=== PATIENT | male | born 1995 | race Caucasian/White ===

== ENCOUNTER 2018-11-19 01:47 | Inpatient (IN) | payer OTHER, MEDICAID ==
[~2018-11-19] VITALS: Ht 195.6 cm; Wt 81.6 kg
[2018-11-19] MEDS ORDERED: MAGNESIUM/ALUMINUM HYDROXIDE/SIMETHICONE 30ML UDC PO STA (03:46)
[2018-11-19] MEDS ORDERED: ONDANSETRON HCL 4MG/2ML INJ IV STA (03:46)
[2018-11-19] MEDS ORDERED: SODIUM CHLORIDE 0.9% 1,000 ML IV ONE (03:46)
[2018-11-19] MEDS ORDERED: MORPHINE SULFATE 4 MG/ML CPJ (NOT FOR IM USE) IV STA ×2 (03:46→07:15)
[2018-11-19 04:44] LABS: EOSINOPHILS % 0.5 % (0.0-5.0); HEMATOCRIT. 48.5 % (42.0-52.0); HEMOGLOBIN. 16.4 g/dL (14.0-18.0); MEAN CORPUSCULAR HEMOGLOBIN 32.3 pg (28.0-32.0); MEAN CORPUSCULAR VOLUME 95.5 fL (80.0-94.0); MEAN PLATELET VOLUME 9.8 fl (7.4-10.4); MONOCYTES % 3.1 % (2.0-8.0); NEUTROPHILS % 83.4 % (40.0-76.0); PLATELET 251 x1000/uL (130-400); RED BLOOD CELL COUNT 5.07 mill/uL (4.7-6.1); RED CELL DISTRIBUTION WIDTH 12.9 % (11.6-14.6)
[2018-11-19 04:47] LABS: CHLORIDE 105 mEq/L (98-107)
[2018-11-19 05:05] LABS: CLARITY URINE CLEAR (CLEAR); COLOR URINE YELLOW (YELLOW); KETONES URINE 3+ (NEGATIVE); LEUKOCYTE ESTERASE URINE NEGATIVE (NEGATIVE); NITRITE URINE NEGATIVE (NEGATIVE); OCCULT BLOOD URINE NEGATIVE (NEGATIVE); PH URINE 5.5 (4.5-8.0); PROTEIN URINE NEGATIVE (NEGATIVE); SPECIFIC GRAVITY URINE 1.025 (1.005-1.030); UROBILINOGEN URINE 0.2 E.U./dL (0.2-1.0)
[2018-11-19] MEDS ORDERED: HYDROCODONE/ACETAMINOPHEN 5/325MG TABLET PO PRN (08:45)
[2018-11-19] MEDS ORDERED: GUAIFENESIN 200MG/10ML SUGAR FREE UDC PO PRN (08:45)
[2018-11-19] MEDS ORDERED: MAGNESIUM/ALUMINUM HYDROXIDE/SIMETHICONE 30ML UDC PO PRN (08:45)
[2018-11-19] MEDS ORDERED: DOCUSATE SODIUM 100MG CAPSULE PO PRN (08:45)
[2018-11-19] MEDS ORDERED: ACETAMINOPHEN 325MG TABLET PO PRN (08:45)
[2018-11-19] MEDS ORDERED: DIPHENHYDRAMINE 50MG/ML VIAL IV PRN (08:45)
[2018-11-19] MEDS ORDERED: CLONIDINE 0.1MG TABLET PO PRN (08:45)
[2018-11-19] MEDS ORDERED: IPRATROPIUM/ALBUTEROL 0.5-3(2.5)MG/3ML NEB INH PRN (08:45)
[2018-11-19 09:10] LABS: PHOSPHORUS 2.7 mg/dL (2.5-4.9)
[2018-11-19] MEDS ORDERED: ENOXAPARIN 40MG/0.4ML SYR SUBCUT NR (09:45)
[2018-11-19 11:19] VITALS: BP 122/56
[2018-11-19] MEDS ORDERED: ALBU6.7H9 INH (11:28)
[2018-11-19] MEDS: ONDANSETRON HCL 4MG/2ML INJ IV PRN ×2 (11:39→18:02)
[2018-11-19 12:00] VITALS: BP 117/65
[2018-11-19] MEDS ORDERED: SODIUM CHLORIDE 0.9% 1,000 ML IV SCH (14:15)
[2018-11-19 16:00] VITALS: BP 118/54
[2018-11-19] MEDS ORDERED: METOCLOPRAMIDE HCL 10MG/2ML VIAL IV NR (16:45)
[2018-11-19 20:00] VITALS: BP 112/56
[2018-11-20] VITALS: BP 113/55
[2018-11-20 04:00] VITALS: BP 119/50
[2018-11-20 06:47] LABS: BASOPHILS % 1.4 % (0.0-2.0); HEMATOCRIT. 43.1 % (42.0-52.0); HEMOGLOBIN. 14.7 g/dL (14.0-18.0); MEAN CORPUSCULAR HEMOGLOBIN 32.6 pg (28.0-32.0); MEAN CORPUSCULAR VOLUME 95.3 fL (80.0-94.0); MEAN PLATELET VOLUME 9.8 fl (7.4-10.4); MONOCYTES % 10.2 % (2.0-8.0); NEUTROPHILS % 55.4 % (40.0-76.0); PLATELET 222 x1000/uL (130-400); RED BLOOD CELL COUNT 4.52 mill/uL (4.7-6.1); RED CELL DISTRIBUTION WIDTH 13.1 % (11.6-14.6)
[2018-11-20 08:00] VITALS: BP 114/67
[2018-11-20 08:00] LABS: CHLORIDE 106 mEq/L (98-107)
[2018-11-20 08:17] LABS: LDL CHOLESTEROL 62 mg/dL (5-100)
[2018-11-20 08:18] LABS: HDL CHOLESTEROL 41 mg/dL (40-59)
[2018-11-20] MEDS ORDERED: ENOXAPARIN 40MG/0.4ML SYR SUBCUT SCH (09:00)
[2018-11-20 11:43] VITALS: BP 127/73
[2018-11-20 12:59] VITALS: BP 110/60
== END 2018-11-20 13:25 | disposition home or self-care (01) | DRG 248 ==
LOC: ER 02:25 → 6EST 08:38 → EDBEDREQTM 08:41 → EDBEDREQSVC 08:41 → EDBEDREQ 08:41 → ENRESERV 08:51
PROVIDERS: ADMIT Internal Medicine; ATTEND Internal Medicine
DX: A04.8 Other specified bacterial intestinal infections (principal); F20.9 Schizophrenia, unspecified; F12.90 Cannabis use, unspecified, uncomplicated; F17.200 Nicotine dependence, unspecified, uncomplicated; J45.909 Unspecified asthma, uncomplicated; Z79.899 Other long term (current) drug therapy
CPT/HCPCS: 36415; 74176; 80061; 83036; 83735; 84100; 84443; 93970; 96361; 96374; 97166; 99285; J1650; J2270; J2405; J2765; J7030

== ENCOUNTER 2020-05-30 00:52 | Emergency (ER) | payer MEDICAID, MEDICARE, OTHER ==
[~2020-05-30] VITALS: Ht 193 cm; Wt 100.0 kg
[~2020-05-30 00:52] MED LIST: ALBU6.7H9 INH
[2020-05-30] MEDS ORDERED: KETOROLAC 30MG/ML VIAL IV STA (01:32)
[2020-05-30] MEDS ORDERED: FAMOTIDINE 20MG/2ML VIAL IV STA (01:32)
[2020-05-30] MEDS ORDERED: ONDANSETRON HCL 4MG/2ML INJ IV STA (01:32)
[2020-05-30] MEDS ORDERED: SODIUM CHLORIDE 0.9% 1,000 ML IV ONE (01:45)
[2020-05-30 02:04] LABS: CHLORIDE 107 mEq/L (98-107)
[2020-05-30 02:15] LABS: BASOPHILS % 0.6 % (0.0-2.0); EOSINOPHILS % 0.9 % (0.0-5.0); HEMATOCRIT. 46.5 % (42.0-52.0); HEMOGLOBIN. 15.8 g/dL (14.0-18.0); LYMPHOCYTES % 13.8 % (20.0-50.0); MEAN CORPUSCULAR HEMOGLOBIN 31.5 pg (28.0-32.0); MEAN CORPUSCULAR VOLUME 93.1 fL (80.0-94.0); MEAN PLATELET VOLUME 9.9 fl (7.4-10.4); MONOCYTES % 4.9 % (2.0-8.0); NEUTROPHILS % 79.8 % (40.0-76.0); PLATELET 247 x1000/uL (130-400); RED BLOOD CELL COUNT 4.99 mill/uL (4.7-6.1); RED CELL DISTRIBUTION WIDTH 13.4 % (11.6-14.6)
[2020-05-30] MEDS: HALOPERIDOL LACTATE 5MG/ML VIAL IM NR ×2 (03:03→03:17)
[2020-05-30] MEDS ORDERED: DICYCLOMINE HCL 10MG/ML 2ML AMP IM ONE (03:15)
[2020-05-30] MEDS ORDERED: MAGNESIUM/ALUMINUM HYDROXIDE/SIMETHICONE 30ML UDC PO ONE (03:45)
[2020-05-30] MEDS ORDERED: MORPHINE SULFATE 4 MG/ML CPJ (NOT FOR IM USE) IV ONE (04:45)
[2020-05-30 05:33] LABS: CLARITY URINE CLOUDY (CLEAR); COLOR URINE YELLOW (YELLOW); KETONES URINE 2+ (NEGATIVE); LEUKOCYTE ESTERASE URINE NEGATIVE (NEGATIVE); NITRITE URINE NEGATIVE (NEGATIVE); OCCULT BLOOD URINE NEGATIVE (NEGATIVE); PH URINE >=9.0 (4.5-8.0); PROTEIN URINE 1+ (NEGATIVE); SPECIFIC GRAVITY URINE 1.024 (1.005-1.030); UROBILINOGEN URINE 0.2 E.U./dL (0.2-1.0)
[2020-05-30 05:42] LABS: *AMPHETAMINES SCREEN URINE NEGATIVE (NEGATIVE); *BARBITURATES SCREEN URINE NEGATIVE (NEGATIVE)
[2020-05-30 05:43] LABS: *BENZODIAZEPINES SCREEN URINE NEGATIVE (NEGATIVE); *COCAINE SCREEN URINE NEGATIVE (NEGATIVE); CANNABINOID URINE SCREEN PRESUMTIVE POSITIVE (NEGATIVE); METHADONE URINE SCREEN NEGATIVE (NEGATIVE); OPIATES URINE SCREEN NEGATIVE (NEGATIVE); PHENCYCLIDINE URINE SCREEN NEGATIVE (NEGATIVE)
[2020-05-30] MEDS ORDERED: MORPHINE SULFATE 4 MG/ML CPJ (NOT FOR IM USE) IV NR (05:45)
[2020-05-30 06:55] VITALS: BP 131/62
== END 2020-05-30 06:55 | disposition home or self-care (01) ==
LOC: ER 00:52
DX: R10.32 Left lower quadrant pain (principal); R10.12 Left upper quadrant pain; R03.0 Elevated blood-pressure reading, without diagnosis of hypertension; F12.10 Cannabis abuse, uncomplicated; J45.909 Unspecified asthma, uncomplicated
CPT/HCPCS: 36415; 74176; 80053; 80305; 81003; 83690; 85025; 93005; 96361; 96372; 96374; 96375; 96376; 99285; J0500; J1630; J1885; J2270; J2405; J3490; J7030

== ENCOUNTER 2020-12-03 01:09 | Emergency (ER) | payer MEDICAID, MEDICARE ==
[~2020-12-03] VITALS: Ht 193 cm; Wt 93.0 kg
[2020-12-03] MEDS ORDERED: MORPHINE SULFATE 4 MG/ML CPJ (NOT FOR IM USE) IV STA (01:29)
[2020-12-03] MEDS ORDERED: ONDANSETRON HCL 4MG/2ML INJ IV STA (01:29)
[2020-12-03] MEDS ORDERED: FAMOTIDINE 20MG/2ML VIAL IV STA (01:29)
[2020-12-03] MEDS ORDERED: SODIUM CHLORIDE 0.9% 1,000 ML IV ONE (01:30)
[2020-12-03 01:52] LABS: BASOPHILS % 0.7 % (0.0-2.0); HEMATOCRIT. 43.5 % (42.0-52.0); HEMOGLOBIN. 14.9 g/dL (14.0-18.0); LYMPHOCYTES % 15.2 % (20.0-50.0); MEAN CORPUSCULAR HEMOGLOBIN 31.5 pg (28.0-32.0); MEAN CORPUSCULAR VOLUME 92.2 fL (80.0-94.0); MEAN PLATELET VOLUME 9.5 fl (7.4-10.4); MONOCYTES % 4.9 % (2.0-8.0); NEUTROPHILS % 75.2 % (40.0-76.0); PLATELET 221 x1000/uL (130-400); RED BLOOD CELL COUNT 4.72 mill/uL (4.7-6.1)
[2020-12-03 01:55] LABS: CHLORIDE 107 mEq/L (98-107)
[2020-12-03 03:13] VITALS: BP 106/55
[2020-12-03] MEDS ORDERED: ONDA4TAB11 PO (03:17)
== END 2020-12-03 04:11 | disposition home or self-care (01) ==
LOC: ER 01:09
DX: R10.12 Left upper quadrant pain (principal); R19.7 Diarrhea, unspecified; R11.10 Vomiting, unspecified; J45.909 Unspecified asthma, uncomplicated; F12.10 Cannabis abuse, uncomplicated
CPT/HCPCS: 36415; 80053; 83690; 84484; 85025; 93005; 96361; 96374; 96375; 99284; J2270; J2405; J3490; J7030; Z7610

== ENCOUNTER 2021-05-05 14:26 | Inpatient (IN) | payer MEDICAID, MEDICARE ==
[~2021-05-05] VITALS: Ht 180.3 cm; Wt 79.8 kg
[~2021-05-05 14:26] MED LIST changes: +ONDA4TAB11 PO
[2021-05-05] MEDS ORDERED: MORPHINE SULFATE 4 MG/ML CPJ (NOT FOR IM USE) IV STA (15:37)
[2021-05-05] MEDS ORDERED: ONDANSETRON HCL 4MG/2ML INJ IV STA (15:37)
[2021-05-05] MEDS ORDERED: MAGNESIUM/ALUMINUM HYDROXIDE/SIMETHICONE 30ML UDC PO STA (15:38)
[2021-05-05] MEDS ORDERED: VISCOUS LIDOCAINE 2% 15 ML UDC PO STA (15:38)
[2021-05-05] MEDS ORDERED: SODIUM CHLORIDE 0.9% 1,000 ML IV ONE (15:45)
[2021-05-05 15:52] LABS: CHLORIDE 110 mEq/L (98-107)
[2021-05-05 15:55] LABS: PROTHROMBIN TIME 11.2 sec (9.6-11.0)
[2021-05-05 15:57] LABS: BASOPHILS % 0.9 % (0.0-2.0); EOSINOPHILS % 0.8 % (0.0-5.0); ETHANOL BLOOD < 10 mg/dL; HEMATOCRIT. 48.1 % (42.0-52.0); HEMOGLOBIN. 16.4 g/dL (14.0-18.0); LYMPHOCYTES % 13.5 % (20.0-50.0); MEAN CORPUSCULAR HEMOGLOBIN 31.5 pg (28.0-32.0); MEAN CORPUSCULAR VOLUME 92.5 fL (80.0-94.0); MONOCYTES % 4.6 % (2.0-8.0); NEUTROPHILS % 80.2 % (40.0-76.0); PLATELET 242 x1000/uL (130-400); RED BLOOD CELL COUNT 5.21 mill/uL (4.7-6.1); RED CELL DISTRIBUTION WIDTH 13.5 % (11.6-14.6)
[2021-05-05 17:06] LABS: CLARITY URINE CLEAR (CLEAR); COLOR URINE YELLOW (YELLOW); KETONES URINE 3+ (NEGATIVE); LEUKOCYTE ESTERASE URINE NEGATIVE (NEGATIVE); NITRITE URINE NEGATIVE (NEGATIVE); OCCULT BLOOD URINE NEGATIVE (NEGATIVE); PH URINE >=9.0 (4.5-8.0); PROTEIN URINE 2+ (NEGATIVE); SPECIFIC GRAVITY URINE 1.024 (1.005-1.030)
[2021-05-05] MEDS ORDERED: PANTOPRAZOLE SODIUM 40 MG/VIAL IV ONE (17:15)
[2021-05-05 17:22] LABS: *AMPHETAMINES SCREEN URINE NEGATIVE (NEGATIVE); *BARBITURATES SCREEN URINE NEGATIVE (NEGATIVE); *BENZODIAZEPINES SCREEN URINE NEGATIVE (NEGATIVE); *COCAINE SCREEN URINE NEGATIVE (NEGATIVE); METHADONE URINE SCREEN NEGATIVE (NEGATIVE)
[2021-05-05 17:23] LABS: CANNABINOID URINE SCREEN PRESUMTIVE POSITIVE (NEGATIVE); OPIATES URINE SCREEN PRESUMTIVE POSITIVE (NEGATIVE); PHENCYCLIDINE URINE SCREEN NEGATIVE (NEGATIVE)
[2021-05-05] MEDS ORDERED: HALOPERIDOL LACTATE 5MG/ML VIAL IM NR (19:00)
[2021-05-05] MEDS ORDERED: MORPHINE SULFATE 4 MG/ML CPJ (NOT FOR IM USE) IV NR (22:30)
[2021-05-06] MEDS ORDERED: METOCLOPRAMIDE HCL 10MG/2ML VIAL IV ONE
[2021-05-06] MEDS ORDERED: SODIUM CHLORIDE 0.45% 1,000 ML IV SCH (11:00)
[2021-05-06] MEDS ORDERED: METOCLOPRAMIDE HCL 10MG/2ML VIAL IV PRN (11:00)
[2021-05-06 12:00] VITALS: BP 119/66
[2021-05-06] MEDS: PANTOPRAZOLE SODIUM 40 MG/VIAL IV SCH (12:03)
[2021-05-06 12:08] VITALS: BP 119/66
[2021-05-06] MEDS ORDERED: ONDA4TAB5 PO (12:22)
[2021-05-06] MEDS ORDERED: ALBU4TAB6 PO (12:22)
[2021-05-06] MEDS ORDERED: ONDANSETRON HCL 4MG/2ML INJ IV PRN (13:30)
[2021-05-06] MEDS ORDERED: *PATIENT'S OWN MEDICATION STORAGE XX SCH (13:30)
[2021-05-06] MEDS ORDERED: ACETAMINOPHEN 325MG TABLET PO PRN (13:30)
[2021-05-06 16:00] VITALS: BP 131/75
[2021-05-06 20:00] VITALS: BP 113/75
[2021-05-06] MEDS: SODIUM CHLORIDE 0.9% 1,000 ML IV SCH (22:03)
[2021-05-07] VITALS: BP 126/79
[2021-05-07] MEDS: SODIUM CHLORIDE 0.9% 1,000 ML IV SCH ×3 (05:32→21:33)
[2021-05-07 06:19] LABS: BASOPHILS % 0.9 % (0.0-2.0); EOSINOPHILS % 0.8 % (0.0-5.0); HEMATOCRIT. 45.3 % (42.0-52.0); HEMOGLOBIN. 15.3 g/dL (14.0-18.0); LYMPHOCYTES % 41.9 % (20.0-50.0); MEAN CORPUSCULAR HEMOGLOBIN 31.9 pg (28.0-32.0); MEAN CORPUSCULAR VOLUME 94.5 fL (80.0-94.0); MEAN PLATELET VOLUME 10.2 fl (7.4-10.4); NEUTROPHILS % 47.4 % (40.0-76.0); PLATELET 205 x1000/uL (130-400); RED CELL DISTRIBUTION WIDTH 13.7 % (11.6-14.6)
[2021-05-07 06:25] LABS: CHLORIDE 107 mEq/L (98-107)
[2021-05-07 08:00] VITALS: BP 108/62
[2021-05-07] MEDS ORDERED: POTASSIUM CHLORIDE 20MEQ TABLET SR PO NR (08:30)
[2021-05-07] MEDS: PANTOPRAZOLE SODIUM 40 MG/VIAL IV SCH (09:10)
[2021-05-07 12:00] VITALS: BP 144/88
[2021-05-07] MEDS ORDERED: KETOROLAC 30MG/ML VIAL IV PRN (12:30)
[2021-05-07] MEDS ORDERED: LORAZEPAM 2MG/ML CPJ IV PRN (13:15)
[2021-05-07] MEDS ORDERED: CHLORDIAZEPOXIDE 5 MG CAPSULE PO SCH (14:00)
[2021-05-07] MEDS: CHLORDIAZEPOXIDE 10MG CAPSULE PO SCH ×2 (14:46→21:33)
[2021-05-07 16:00] VITALS: BP 119/66
[2021-05-07 20:00] VITALS: BP 111/76
[2021-05-07] MEDS: METOCLOPRAMIDE HCL 10MG/2ML VIAL IV SCH (21:32)
[2021-05-08] VITALS: BP 118/63
[2021-05-08 04:00] VITALS: BP 121/61
[2021-05-08 06:51] LABS: BASOPHILS % 1.1 % (0.0-2.0); EOSINOPHILS % 1.3 % (0.0-5.0); HEMATOCRIT. 47.2 % (42.0-52.0); HEMOGLOBIN. 15.9 g/dL (14.0-18.0); LYMPHOCYTES % 41.4 % (20.0-50.0); MEAN CORPUSCULAR HEMOGLOBIN 31.8 pg (28.0-32.0); MEAN CORPUSCULAR VOLUME 94.5 fL (80.0-94.0); MONOCYTES % 8.5 % (2.0-8.0); NEUTROPHILS % 47.7 % (40.0-76.0); PLATELET 210 x1000/uL (130-400); RED CELL DISTRIBUTION WIDTH 13.3 % (11.6-14.6)
[2021-05-08 06:59] LABS: CHLORIDE 105 mEq/L (98-107)
[2021-05-08 08:00] VITALS: BP 118/63
[2021-05-08] MEDS ORDERED: MULTIVITAMINS,THER W-MINERALS TABLET PO SCH (09:00)
[2021-05-08] MEDS ORDERED: FOLIC ACID 1MG TABLET PO SCH (09:00)
[2021-05-08] MEDS ORDERED: THIAMINE HCL 100MG TABLET PO SCH (09:00)
[2021-05-08] MEDS: PANTOPRAZOLE SODIUM 40 MG/VIAL IV SCH (09:07)
[2021-05-08] MEDS ORDERED: POTASSIUM CHLORIDE 20MEQ TABLET SR PO NR (09:45)
[2021-05-08 10:38] VITALS: BP 115/71
[2021-05-08 12:00] VITALS: BP_SYST 115; BP_SYST 117; BP_DIAS 63; BP_DIAS 71
[2021-05-08] MEDS: METOCLOPRAMIDE HCL 10MG/2ML VIAL IV SCH (12:50)
== END 2021-05-08 13:16 | disposition home or self-care (01) | DRG 241 ==
LOC: ER 14:26 → MICUSO 23:58 → 6EST 05-06 07:42
PROVIDERS: ADMIT Internal Medicine; ATTEND Internal Medicine
DX: K29.20 Alcoholic gastritis without bleeding (principal); F12.10 Cannabis abuse, uncomplicated; J45.909 Unspecified asthma, uncomplicated; K59.00 Constipation, unspecified; R11.2 Nausea with vomiting, unspecified; Z79.899 Other long term (current) drug therapy
CPT/HCPCS: 36415; 71045; 76705; 80048; 80053; 80305; 80320; 81003; 85025; 99285; C1893; C9113; J1630; J1885; J2060; J2270; J2405; J2765; J7030; G0480

== ENCOUNTER 2022-12-14 13:48 | Emergency (ER) | payer MEDICAID ==
[~2022-12-14] VITALS: Ht 177.8 cm; Wt 80.0 kg
[~2022-12-14 13:48] MED LIST changes: +ALBU4TAB6 PO; +ALBU6.7H3 INH; -ALBU6.7H9 INH; -ONDA4TAB11 PO
[2022-12-14 15:25] LABS: HEMATOCRIT. 47.5 % (42.0-52.0); HEMOGLOBIN. 16.2 g/dL (14.0-18.0); MEAN CORPUSCULAR HEMOGLOBIN 32.3 pg (28.0-32.0); MEAN CORPUSCULAR VOLUME 94.8 fL (80.0-94.0); MEAN PLATELET VOLUME 9.7 fl (7.4-10.4); PLATELET 251 x1000/uL (130-400); RED BLOOD CELL COUNT 5.01 mill/uL (4.7-6.1); RED CELL DISTRIBUTION WIDTH 13.3 % (11.6-14.6)
[2022-12-14 15:37] LABS: CHLORIDE 104 mEq/L (98-107)
[2022-12-14] MEDS ORDERED: ONDANSETRON HCL 4MG/2ML INJ IV ONE (17:45)
[2022-12-14] MEDS ORDERED: MORPHINE SULFATE 4 MG/ML CPJ (NOT FOR IM USE) IV ONE (17:45)
[2022-12-14] MEDS ORDERED: HALOPERIDOL LACTATE 5MG/ML VIAL IM ONE (19:45)
[2022-12-14 22:03] LABS: PLATELET ESTIMATE NORMAL
[2022-12-15 00:28] VITALS: BP 126/76
== END 2022-12-15 00:30 | disposition short-term general hospital (02) ==
LOC: ER 13:48 → UNDOADMIN 19:50 → MICUSO 19:50 → UNDODISIN 21:49 → MICUSO 12-15 00:30
DX: R11.15 Cyclical vomiting syndrome unrelated to migraine (principal); F15.10 Other stimulant abuse, uncomplicated
CPT/HCPCS: 36415; 71045; 74176; 80053; 80320; 83690; 85025; 96372; 96374; 96375; 99285; J1630; J2270; J2405; Z7610; G0480

== ENCOUNTER 2023-04-01 22:08 | Emergency (ER) | payer MEDICAID, OTHER ==
[~2023-04-01] VITALS: Ht 190.5 cm; Wt 98.3 kg
[2023-04-01 22:27] VITALS: O2SAT 96
[2023-04-01] MEDS ORDERED: PANTOPRAZOLE SODIUM 40 MG/VIAL IV STA (22:48)
[2023-04-01] MEDS ORDERED: MAGNESIUM/ALUMINUM HYDROXIDE/SIMETHICONE 30ML UDC PO STA (22:48)
[2023-04-01] MEDS ORDERED: ONDANSETRON HCL 4MG/2ML INJ IV STA (22:48)
[2023-04-01] MEDS ORDERED: SODIUM CHLORIDE 0.9% 1,000 ML IV ONE (23:00)
[2023-04-01 23:47] LABS: HEMATOCRIT. 47.8 % (42.0-52.0); HEMOGLOBIN. 15.9 g/dL (14.0-18.0); MEAN CORPUSCULAR HEMOGLOBIN 31.5 pg (28.0-32.0); MEAN CORPUSCULAR HGB CONC 33.3 g/dL (31.0-37.0); MEAN CORPUSCULAR VOLUME 94.6 fL (80.0-94.0); MEAN PLATELET VOLUME 9.8 fl (7.4-10.4); PLATELET 227 x1000/uL (130-400); RED BLOOD CELL COUNT 5.06 mill/uL (4.7-6.1); RED CELL DISTRIBUTION WIDTH 13.3 % (11.6-14.6); WHITE BLOOD COUNT 12.6 x1000/uL (4.5-11.0)
[2023-04-01 23:52] LABS: CHLORIDE 104 mEq/L (98-107); INDEX HEMOLYSI 1 (1-3); INDEX ICTERIC 1 (1-4); INDEX LIPEMIC 1 (1-3); POTASSIUM 3.7 mEq/L (3.5-5.1); SODIUM 135 mEq/L (136-145)
[2023-04-01 23:54] LABS: PROTHROMBIN TIME 11.1 sec (9.6-11.0)
[2023-04-01 23:57] LABS: DIFFERENTIAL COMMENT 1
[2023-04-02] MEDS ORDERED: KETOROLAC 15MG/ML VIAL IV ONE ×2 (00:15→03:45)
[2023-04-02 00:31] LABS: ALANINE AMINOTRANSFERASE 30 IU/L (13-61); ALBUMIN 4.8 g/dL (3.4-5.0); ASPARTATE AMINOTRANSFERASE 20 IU/L (15-37); BILIRUBIN TOTAL 0.5 mg/dL (0.1-1.0); CARBON DIOXIDE 21 mEq/L (21-32); CREATININE 0.9 mg/dL (0.6-1.3); ETHANOL BLOOD < 10 mg/dL (-10); GLUCOSE 143 mg/dL (70-105); PROTEIN TOTAL 9.2 g/dL (6.0-8.3); UREA NITROGEN BLOOD 10 mg/dL (7-21)
[2023-04-02 00:56] LABS: CALCIUM 10.7 mg/dL (8.5-10.1)
[2023-04-02] MEDS ORDERED: IOHEXOL-300 100 ML BOTTLE ONE (03:26)
[2023-04-02 05:06] LABS: CLARITY URINE CLEAR (CLEAR); COLOR URINE YELLOW (YELLOW); GLUCOSE URINE 2+ (NEGATIVE); KETONES URINE 1+ (NEGATIVE); LEUKOCYTE ESTERASE URINE NEGATIVE (NEGATIVE); NITRITE URINE NEGATIVE (NEGATIVE); OCCULT BLOOD URINE NEGATIVE (NEGATIVE); PROTEIN URINE 1+ (NEGATIVE); SPECIFIC GRAVITY URINE >1.040 (1.005-1.030); UROBILINOGEN URINE 0.2 E.U./dL (0.2-1.0)
[2023-04-02 05:28] LABS: *AMPHETAMINES SCREEN URINE NEGATIVE (NEGATIVE); *BARBITURATES SCREEN URINE NEGATIVE (NEGATIVE); *BENZODIAZEPINES SCREEN URINE NEGATIVE (NEGATIVE); *COCAINE SCREEN URINE NEGATIVE (NEGATIVE); CANNABINOID URINE SCREEN PRESUMTIVE POSITIVE (NEGATIVE); ECSTASY MDMA SCREEN URINE NEGATIVE (NEGATIVE); METHADONE URINE SCREEN NEGATIVE (NEGATIVE); OPIATES URINE SCREEN NEGATIVE (NEGATIVE); PHENCYCLIDINE URINE SCREEN NEGATIVE (NEGATIVE)
[2023-04-02] MEDS ORDERED: PROT40 MT (05:58)
[2023-04-02] MEDS ORDERED: ACET-2708 MT (05:58)
[2023-04-02] MEDS ORDERED: ONDA4TAB50 MT (05:58)
[2023-04-02 06:13] VITALS: BP 104/50; PULSE 59; RESP 17; TEMP 98.4
[2023-04-02 07:53] LABS: RBC URINE 0-2 /hpf (0-2); WBC URINE 0-2 /hpf (0-2)
[2023-04-02 07:54] LABS: BACTERIA URINE NONE SEEN; SQUAMOUS EPITHELIAL CELL URINE FEW /lpf (RARE/1+)
[2023-04-02 08:33] LABS: PLATELET ESTIMATE NORMAL
== END 2023-04-02 06:15 | disposition home or self-care (01) ==
LOC: ER 22:08
DX: R10.12 Left upper quadrant pain (principal); I10 Essential (primary) hypertension; J45.909 Unspecified asthma, uncomplicated; Z79.899 Other long term (current) drug therapy
CPT/HCPCS: 80053; 80320; 83690; 85025; 85610; 36415; 96374; 96375 ×2; 99285; 80305; 81003; 74177; 96376; J2405; C9113; J7030; Q9967; J1885; G0480

== ENCOUNTER 2023-08-23 14:52 | Emergency (ER) | payer OTHER ==
[~2023-08-23] VITALS: Ht 182.9 cm; Wt 69.0 kg
[~2023-08-23 14:52] MED LIST changes: +ACET-2708 MT; +ONDA4TAB50 MT; +PROT40 MT
[2023-08-23 14:59] VITALS: BP 118/74; PULSE 74; RESP 18; TEMP 97.9; O2SAT 98
[2023-08-23] MEDS ORDERED: ONDANSETRON 4MG ODT PO STA (15:14)
[2023-08-23] MEDS ORDERED: ACETAMINOPHEN 325MG TABLET PO STA (15:14)
[2023-08-23 17:58] LABS: HEMATOCRIT. 50.4 % (42.0-52.0); HEMOGLOBIN. 17.3 g/dL (14.0-18.0); MEAN CORPUSCULAR HEMOGLOBIN 32.8 pg (28.0-32.0); MEAN CORPUSCULAR HGB CONC 34.4 g/dL (31.0-37.0); MEAN CORPUSCULAR VOLUME 95.4 fL (80.0-94.0); MEAN PLATELET VOLUME 9.9 fl (7.4-10.4); PLATELET 277 x1000/uL (130-400); RED BLOOD CELL COUNT 5.29 mill/uL (4.7-6.1); RED CELL DISTRIBUTION WIDTH 13.3 % (11.6-14.6); WHITE BLOOD COUNT 16.3 x1000/uL (4.5-11.0)
[2023-08-23 17:59] LABS: DIFFERENTIAL COMMENT 1
[2023-08-23 18:03] LABS: INR 1.1
[2023-08-23 18:10] LABS: ALANINE AMINOTRANSFERASE 12 IU/L (10-49); ALBUMIN 5.1 g/dL (3.2-4.8); ASPARTATE AMINOTRANSFERASE 22 IU/L (<34); BILIRUBIN TOTAL 0.7 mg/dL (0.1-1.0); CALCIUM 10.7 mg/dL (8.7-10.4); CARBON DIOXIDE 28 mEq/L (21-32); CHLORIDE 103 mEq/L (98-107); GLUCOSE 150 mg/dL (70-105); POTASSIUM 3.6 mEq/L (3.5-5.1); SODIUM 141 mEq/L (136-145); UREA NITROGEN BLOOD 11 mg/dL (9-23)
[2023-08-23 18:11] LABS: ETHANOL BLOOD < 10 mg/dL (<10)
[2023-08-23 18:28] LABS: PLATELET ESTIMATE NORMAL
[2023-08-23] MEDS ORDERED: MAGNESIUM/ALUMINUM HYDROXIDE/SIMETHICONE 30ML UDC PO NR (18:45)
[2023-08-23] MEDS ORDERED: ONDA4TAB11 PO (19:20)
[2023-08-23] MEDS ORDERED: MAGNESIUM/ALUMINUM HYDROXIDE/SIMETHICONE 30ML UDC PO ONE (19:30)
== END 2023-08-23 16:10 | disposition home or self-care (01) ==
LOC: ER 14:52
DX: R11.2 Nausea with vomiting, unspecified (principal); J45.909 Unspecified asthma, uncomplicated
CPT/HCPCS: 36415; 74176; 80053; 80320; 83735; 85025; 99284; Q0162; G0480

== ENCOUNTER 2025-01-17 15:11 | Emergency (ER) | payer MEDICAID, OTHER ==
[~2025-01-17] VITALS: Ht 177.8 cm; Wt 87.0 kg
[~2025-01-17 15:11] MED LIST changes: +ONDA-239 PO
[2025-01-17 15:18] VITALS: O2SAT 98
[2025-01-17] MEDS: MAGNESIUM/ALUMINUM HYDROXIDE/SIMETHICONE 30ML UDC PO ONE (15:51)
[2025-01-17] MEDS: ONDANSETRON HCL 4MG/2ML INJ IV STA ×2 (15:51→17:23)
[2025-01-17] MEDS: MORPHINE SULFATE 4 MG/ML INJ (FOR IV/IM USE) IV STA ×2 (15:52→17:23)
[2025-01-17 16:00] LABS: BASOPHILS % 0.7 % (0.0-2.0); EOSINOPHILS % 1.7 % (0.0-5.0); HEMATOCRIT. 50.6 % (42.0-52.0); HEMOGLOBIN. 16.7 g/dL (14.0-18.0); LYMPHOCYTES % 16.3 % (20.0-50.0); MEAN CORPUSCULAR HEMOGLOBIN 32.1 pg (28.0-32.0); MEAN CORPUSCULAR VOLUME 97.4 fL (80.0-94.0); MEAN PLATELET VOLUME 9.5 fl (7.4-10.4); MONOCYTES % 6.4 % (2.0-8.0); NEUTROPHILS % 74.9 % (40.0-76.0); PLATELET 221 x1000/uL (130-400); RED BLOOD CELL COUNT 5.19 mill/uL (4.7-6.1); RED CELL DISTRIBUTION WIDTH 13.5 % (11.6-14.6); WHITE BLOOD COUNT 12.5 x1000/uL (4.5-11.0)
[2025-01-17 16:12] LABS: CHLORIDE 108 mEq/L (98-107); POTASSIUM 3.4 mEq/L (3.5-5.1); SODIUM 142 mEq/L (136-145)
[2025-01-17 16:13] LABS: CARBON DIOXIDE 22 mEq/L (21-32)
[2025-01-17 16:18] LABS: CREATININE 0.8 mg/dL (0.6-1.3); GLUCOSE 135 mg/dL (70-105); UREA NITROGEN BLOOD 7 mg/dL (9-23)
[2025-01-17 16:19] LABS: PROTHROMBIN TIME 10.9 sec (9.6-11.0)
[2025-01-17] MEDS: MAGNESIUM/ALUMINUM HYDROXIDE/SIMETHICONE 30ML UDC PO STA (17:23)
[2025-01-17] MEDS: PANTOPRAZOLE SODIUM 40 MG/VIAL IV STA (17:23)
[2025-01-17] MEDS: VISCOUS LIDOCAINE 2% 15 ML UDC PO STA (17:26)
[2025-01-17] MEDS: VISCOUS LIDOCAINE 2% 15 ML UDC PO SCH (17:26)
[2025-01-17] MEDS ORDERED: HYDR-4009 MT (18:38)
[2025-01-17] MEDS ORDERED: ONDA-239 PO (18:38)
[2025-01-17] MEDS ORDERED: OMEP40CA20 MT (18:38)
[2025-01-17 20:30] VITALS: TEMP 36.7; O2SAT 100
[2025-01-17] MEDS ORDERED: ONDANSETRON HCL 4MG/2ML INJ IM ONE (20:30)
[2025-01-17 20:49] VITALS: BP 124/91; PULSE 63; RESP 20
[2025-01-17] MEDS: MORPHINE SULFATE 2 MG/ML INJ (NOT FOR IM USE) IV NR (20:49)
[2025-01-17] MEDS: ONDANSETRON HCL 4MG/2ML INJ IV NR (20:50)
[2025-01-18] MEDS ORDERED: MORPHINE SULFATE 2 MG/ML INJ (NOT FOR IM USE) IV ONE (20:30)
== END 2025-01-17 20:54 | disposition short-term general hospital (02) ==
LOC: ER 15:11 → EDBEDREQ 18:54 → EDBEDREQTM 19:28 → ENRESERV 20:19 → ER 20:54
DX: R10.9 Unspecified abdominal pain (principal); M25.552 Pain in left hip; F12.10 Cannabis abuse, uncomplicated; J45.909 Unspecified asthma, uncomplicated; Z79.899 Other long term (current) drug therapy; W18.2XXA Fall in (into) shower or empty bathtub, initial encounter; Y93.89 Activity, other specified; Y92.89 Other specified places as the place of occurrence of the external cause; Y99.8 Other external cause status
CPT/HCPCS: 80048; 85025; 85610; 36415; 72192; 96365; 96375; 96376; 99285; J2405; J2470; J2270 ×2; Z7610 ×2